=== PATIENT | male | born 1955 | race Caucasian/White ===

== ENCOUNTER 2021-03-04 00:40 | Observation (INO) ==
[2021-03-04] MEDS ORDERED: GADOBUTROL 65ML VIAL IV ONE (02:06)
[2021-03-04 02:17] LABS: Basophils # (auto) 0.02 K/uL (0-0.2); Basophils % (auto) 0.3 %; Eosinophils # (auto) 0.01 K/uL (0-0.5); Eosinophils % (auto) 0.1 %; Hematocrit (blood only) 40.6 % (42-52); Hemoglobin 14.2 g/dL (14.0-18.0); Immature Granulocytes # (auto) 0.04 K/uL (0.00-0.02); Immature Granulocytes % (auto) 0.5 %; Lymphocytes # (auto) 1.74 K/uL (1.2-3.4); Lymphocytes % (auto) 22.2 %; Mean Corpuscular Hemoglobin 28.8 pg (25-34); Mean Corpuscular Volume 82.4 fL (80-100); Mean Platelet Volume 10.6 fL (7.4-10.4); Monocytes % (auto) 8.9 %; Neutrophils # (auto) 5.33 K/uL (1.4-6.5); Platelet Count 167 K/uL (130-400); RDW Standard Deviation 41.8 fL (36.4-46.3); Red Blood Count 4.93 M/uL (4.7-6.1); White Blood Count 7.84 K/uL (4.8-10.8)
[2021-03-04 02:26] LABS: Albumin Level 3.9 gm/dl (3.4-5.0); BUN Creatinine Ratio 21.1 (10-20); Calcium 8.8 mg/dl (8.5-10.1); Creatinine Clr Calc Pharmacy 78.9 ml/min; Est GFR (African American) 87.1 ml/min; Est GFR (Non-African American) 75.2 ml/min; Potassium 4.1 mmol/L (3.5-5.1)
[2021-03-04 02:29] LABS: Albumin Globulin Ratio 1.2 (0.9-2); Bilirubin,Total 1.3 mg/dl (0.2-1); Globulin 3.2 gm/dl (2.5-4.0); Total Protein 7.1 gm/dl (6.4-8.2)
[2021-03-04] MEDS ORDERED: SODIUM CHLORIDE 0.9% 500 ML IV ONE (02:33)
--- NOTE | 2021-03-04 02:36 | Emergency Department Note ---
Impression & Plan Acute alteration in mental status, Acute dehydration ED Provider Note NAME: ASA GOMEZ AGE: 65 SEX: M ARRIVES VIA: Ambulance INFORMANT: Patient ED PROVIDER(S): Hawa Palomino DO CHIEF COMPLAINT: Altered mental status PLAN: [facility] Stable MEDICAL DECISION MAKING: This is a 65-year-old male patient who presents to the emergency department with a persistent altered mental status. Patient was seen here earlier in the day with a similar complaint. However, the brother states that the patient's confusion persists and seems to be worsening. Covid testing is negative. MRI of the brain is essentially unremarkable. Patient's transaminases have incre ased even more since yesterday. Ammonia level slightly elevated at 34. I have [facility] the [facility] and they will evaluate the patient for further management and neurology evaluation. Triage Nursing notes reviewed and agree with them. Additional history obtained from the patient's brother who is at the bedside Prior medical records reviewed Vital Signs: reviewed and unremarkable Differential diagnosis: Metabolic encephalopathy; Covid brain fog; dehydration; UTI; acute CVA; ER treatment provided: IV normal saline bolus Diagnostics interpreted by me: ECG: Sinus tachycardia at [address] segment elevation or signs of ischemia. There is no ectopy. QTC is 433 ms. Cardiac Monitoring: Normal sinus rhythm at 99. Laboratory studies: See below Imaging studies: As per stat rad MRI brain: Impression negative exam. No ICH, mass-effect or edema. No foci of acute ischemia. No abnormal enhancement in the brain parenchyma. No substantial parenchymal signal abnormality. Small retention cyst in the maxillary sinuses. HPI: 65/M arrives for evaluation of confusion. The patient was discharged from the emergency department earlier this evening after being evaluated for altered mental status. The brother explains that upon arriving at home, the patient has been walking about the house seemingly confused. For example, the patient does not know how to work the remote control for the TV and has asked repeatedly how to use it. Another example is that the patient unwrapped a [place] bar to eat it and held it in his hand not knowing what to do with that to the point that it melted. The patient seemed more paranoid and the brother called EMS. EMS noted that the patient seemed to be agitated and picking at things. They called medical command and got orders to administer IV Ativan which seemed to help the patient's overall condition. ROS: See above HPI for pertinent positives & negatives. A total of 10 systems reviewed and were otherwise negative. PAST MEDICAL HISTORY:GERD and hypercholesterolemia PAST SURGICAL HISTORY:See Below FAMILY HISTORY:See Below SOCIAL HISTORY:See Below HOME MEDICATIONS:See list ALLERGIES:None VITALS:See Below PHYSICAL EXAMINATION: HEENT: Head - normocephalic and atraumatic. Pupils are equal, round, and reactive to light. Extraocular eye muscles are intact and sclera are anicteric. Ears - bilaterally patent canals with noninjected tympanic membranes and no evidence of hemotympanum. Nose - moist nasal mucosa without discharge. Mouth - moist buccal mucosa. Oropharynx is nonerythematous and there is no tonsillar exudate or edema noted. Neck: Supple; no JVD, nuchal rigidity, cervical lymphadenopathy, or auscultated bruits. Heart: Regular rate and rhythm. There is a normal S1 and S2 with no murmurs, clicks, or gallops appreciated. Lungs: Clear to auscultation bilaterally with no wheezes, rales, or rhonchi. Abdomen: Soft, completely nontender, nondistended, with good bowel sounds. There are no palpable pulsatile masses or hepatosplenomegaly. There is no guarding, rigidity, or rebound noted. Extremities: No evidence of cyanosis, clubbing, or edema. There are easily palpable peripheral pulses. Neuro:The patient is awake and alert but slow to answer questions. He was oriented to day, time, and place. Muscle strength is 5/5 in all 4 extremities. The patient has equal call taker strength and equal pedal push and pull. There are no cerebellar signs. ED COURSE: Times/Reassessments: 0055: The patient was evaluated in room C9. A complete history and physical was performed. Previous electronic medical records were reviewed. An order was placed for continuous cardiac monitoring. The patient was in a normal sinus rhythm at a rate of 99. A twelve-lead EKG was obtained as described above. Covid testing was performed. The patient will go for MRI of the brain. Laboratory studies were drawn. Labs reveal some evidence of dehydration. The patient was bolused with IV normal saline solution and then started on a normal saline drip. [facility] and they will evaluate for further management. Hawa Palomino DO Past Med/Surg History Medical History GERD (gastroesophageal reflux disease) Hypercholesterolemia Surgical History No significant past surgical history Family History Other Diabetes Hypertension Social History Smoking Status: Never smoker Hx Alcohol Use: No Hx Substance Use: No Preferred Language: Romansh Communication Ability: Impaired Beliefs That Will Affect Care: None marital status: Single Current Living Situation: Family current occupational status: unemployed Other Information That Helps Us Care for You: No Feels Safe at Home: Yes Assistive Devices: Glasses Allergies Allergies Allergy/AdvReac Type Severity Reaction Status Date / Time No Known Allergies Allergy Unverified 03/03/21 11:18 Home Meds Home Medications Medication Instructions Recorded Confirmed atorvastatin 10 mg PO HS 07/17/18 03/04/21 cholecalciferol (vitamin D3) 2,000 unit PO DAILY@1600 07/17/18 03/04/21 [Vitamin D3] omeprazole 40 mg PO DAILY@1600 07/17/18 03/04/21 aspirin [Aspir-81] 81 mg PO DAILY@1600 03/03/21 03/04/21 Results & Data (ED) Vital Signs Vital Signs - 24 hr 03/04/21 00:46 03/04/21 00:53 03/04/21 01:00 Temperature 37.0 C Temperature Source Oral Pulse Rate 106 H 110 H 110 H Pulse Rate [Finger] Pulse Rate from SpO2 Sensor 108 H 110 H Respiratory Rate 17 16 15 Blood Pressure 125/86 122/80 125/79 Blood Pressure [Right Arm] Blood Pressure Mean 99 94 94 Blood Pressure Mean [Right Arm] Blood Pressure Position [Right Arm] Pulse Oximetry 93 92 91 Oxygen Delivery Method Room Air Sepsis Recent Fever Within 48 Hours No Sepsis New/Unexplained Change in Mental Status No Sepsis Action Taken by Nursing No Action Required 03/04/21 01:14 03/04/21 01:15 03/04/21 01:30 Temperature Temperature Source Pulse Rate 105 H 101 H Pulse Rate [Finger] Pulse Rate from SpO2 Sensor 103 H 101 H Respiratory Rate 19 15 Blood Pressure 111/77 115/72 Blood Pressure [Right Arm] Blood Pressure Mean 88 86 Blood Pressure Mean [Right Arm] Blood Pressure Position [Right Arm] Pulse Oximetry 95 89 L 92 Oxygen Delivery Method Room Air Sepsis Recent Fever Within 48 Hours Sepsis New/Unexplained Change in Mental Status Sepsis Action Taken by Nursing 03/04/21 02:16 03/04/21 02:30 03/04/21 02:45 Temperature Temperature Source Pulse Rate 101 H 99 H 101 H Pulse Rate [Finger] Pulse Rate from SpO2 Sensor 99 H 102 H Respiratory Rate 25 H 15 Blood Pressure 118/87 130/85 Blood Pressure [Right Arm] Blood Pressure Mean 97 100 Blood Pressure Mean [Right Arm] Blood Pressure Position [Right Arm] Pulse Oximetry 95 96 Oxygen Delivery Method Sepsis Recent Fever Within 48 Hours Sepsis New/Unexplained Change in Mental Status Sepsis Action Taken by Nursing 03/04/21 03:00 03/04/21 03:15 03/04/21 03:30 Temperature Temperature Source Pulse Rate 96 H 90 101 H Pulse Rate [Finger] Pulse Rate from SpO2 Sensor 95 H 90 100 H Respiratory Rate 9 L 21 12 Blood Pressure 115/72 114/70 114/77 Blood Pressure [Right Arm] Blood Pressure Mean 86 84 89 Blood Pressure Mean [Right Arm] Blood Pressure Position [Right Arm] Pulse Oximetry 95 93 95 Oxygen Delivery Method Sepsis Recent Fever Within 48 Hours Sepsis New/Unexplained Change in Mental Status Sepsis Action Taken by Nursing 03/04/21 03:38 Temperature Temperature Source Pulse Rate Pulse Rate [Finger] 96 H Pulse Rate from SpO2 Sensor Respiratory Rate 17 Blood Pressure Blood Pressure [Right Arm] 114/77 Blood Pressure Mean Blood Pressure Mean [Right Arm] 89 Blood Pressure Position [Right Arm] Lying Pulse Oximetry 94 Oxygen Delivery Method Room Air Sepsis Recent Fever Within 48 Hours Sepsis New/Unexplained Change in Mental Status Sepsis Action Taken by Nursing Laboratory Data Result diagrams: 03/04/21 00:54 03/04/21 00:54 Lab Results 03/04/21 03/04/21 03/04/21 Range/Units 00:54 00:54 01:10 WBC 7.84 (4.8-10.8) K/uL RBC 4.93 (4.7-6.1) M/uL Hgb 14.2 (14.0-18.0) g/dL Hct 40.6 L (42-52) % MCV 82.4 (80-100) fL MCH 28.8 (25-34) pg MCHC 35.0 (32-36) g/dL RDW Std Deviation 41.8 (36.4-46.3) fL RDW Coeff of Geovanna 14.0 (11.5-14.5) % Plt Count 167 (130-400) K/uL MPV 10.6 H (7.4-10.4) fL Immature Gran % (Auto) 0.5 % Neut % (Auto) 68.0 % Lymph % (Auto) 22.2 % Waldo % (Auto) 8.9 % Eos % (Auto) 0.1 % Baso % (Auto) 0.3 % Neut # (Auto) 5.33 (1.4-6.5) K/uL Lymph # (Auto) 1.74 (1.2-3.4) K/uL Waldo # (Auto) 0.70 H (0.11-0.59) K/uL Eos # (Auto) 0.01 (0-0.5) K/uL Baso # (Auto) 0.02 (0-0.2) K/uL Immature Gran # (Auto) 0.04 H (0.00-0.02) K/uL Sodium 141 (136-145) mmol/L Potassium 4.1 (3.5-5.1) mmol/L Chloride 106 (98-107) mmol/L Carbon Dioxide 28 (21-32) mmol/L Anion Gap 7.0 (3-11) BUN 22 H D (7-18) mg/dl Creatinine 1.05 (0.6-1.4) mg/dl Est Cr Clr Drug Dosing 78.9 ml/min Est GFR ( Amer) 87.1 ml/min Est GFR (Non-Af Amer) 75.2 ml/min BUN/Creatinine Ratio 21.1 H (10-20) Glucose 123 H (70-99) mg/dl Calcium 8.8 (8.5-10.1) mg/dl Total Bilirubin 1.3 H (0.2-1) mg/dl AST 75 H (15-37) U/L ALT 130 H (12-78) U/L Alkaline Phosphatase 139 H (45-117) U/L Total Protein 7.1 (6.4-8.2) gm/dl Albumin 3.9 (3.4-5.0) gm/dl Globulin 3.2 (2.5-4.0) gm/dl Albumin/Globulin Ratio 1.2 (0.9-2) COVID-19 Eval Order Covid19 at [facility] SARS-CoV-2 (PCR) (Negative) 03/04/21 Range/Units 01:10 WBC (4.8-10.8) K/uL RBC (4.7-6.1) M/uL Hgb (14.0-18.0) g/dL Hct (42-52) % MCV (80-100) fL MCH (25-34) pg MCHC (32-36) g/dL RDW Std Deviation (36.4-46.3) fL RDW Coeff of Geovanna (11.5-14.5) % Plt Count (130-400) K/uL MPV (7.4-10.4) fL Immature Gran % (Auto) % Neut % (Auto) % Lymph % (Auto) % Waldo % (Auto) % Eos % (Auto) % Baso % (Auto) % Neut # (Auto) (1.4-6.5) K/uL Lymph # (Auto) (1.2-3.4) K/uL Waldo # (Auto) (0.11-0.59) K/uL Eos # (Auto) (0-0.5) K/uL Baso # (Auto) (0-0.2) K/uL Immature Gran # (Auto) (0.00-0.02) K/uL Sodium (136-145) mmol/L Potassium (3.5-5.1) mmol/L Chloride (98-107) mmol/L Carbon Dioxide (21-32) mmol/L Anion Gap (3-11) BUN (7-18) mg/dl Creatinine (0.6-1.4) mg/dl Est Cr Clr Drug Dosing ml/min Est GFR ( Amer) ml/min Est GFR (Non-Af Amer) ml/min BUN/Creatinine Ratio (10-20) Glucose (70-99) mg/dl Calcium (8.5-10.1) mg/dl Total Bilirubin (0.2-1) mg/dl AST (15-37) U/L ALT (12-78) U/L Alkaline Phosphatase (45-117) U/L Total Protein (6.4-8.2) gm/dl Albumin (3.4-5.0) gm/dl Globulin (2.5-4.0) gm/dl Albumin/Globulin Ratio (0.9-2) COVID-19 Eval Order SARS-CoV-2 (PCR) NEGATIVE (Negative) Administered Medications Discontinued Medications Gadobutrol (Gadobutrol 65ml Vial) 9 ml IV ONCE ONE Stop: 03/04/21 02:07 Last Admin: 03/04/21 02:07 Dose: 9 ml Documented by: [id number] Sodium Chloride (Nss) 500 mls @ 999 mls/hr IV .Q31M ONE Stop: 03/04/21 03:03 Last Infusion: 03/04/21 03:20 Dose: 0 mls/hr Documented by: [id number] Admin: 03/04/21 02:42 Dose: 999 mls/hr Documented by: [id number] Sodium Chloride (Nss) 500 mls @ 125 mls/hr IV .Q4H [facility] Stop: 04/03/21 02:44 Last Infusion: 03/04/21 04:56 Dose: 0 mls/hr Documented by: [id number] Admin: 03/04/21 02:48 Dose: 125 mls/hr Documented by: [id number] Discharge Plan Visit Data Chief Complaint: Altered Mental Status Stated Complaint: ALTERED MENTAL STATUS ED Provider: Hawa Palomino Discharge Problem: Acute alteration in mental status, Acute dehydration Patient Disposition: Admitted As Inpatient Discharge Instructions Interventions: ED Discharge Assessment Last Done: 03/04/21 04:15
[2021-03-04] MEDS ORDERED: SODIUM CHLORIDE 0.9% 500 ML IV SCH (02:45)
[2021-03-04] MEDS ORDERED: POLYETHYLENE (MIRALAX) 17 GM PACK PO PRN (04:47)
[2021-03-04] MEDS ORDERED: ONDANSETRON INJ 2 MG/ML 2 ML VIAL IV PRN (04:47)
[2021-03-04] MEDS ORDERED: NITROGLYCERIN SL 0.4 MG/TAB TAB SL PRN (04:47)
[2021-03-04] MEDS: SODIUM CHLORIDE 0.9% 1000ML 1,000 ML IV SCH ×2 (05:30→15:28)
--- NOTE | 2021-03-04 05:57 | History and Physical Report ---
DATE OF ADMISSION: 03/04/2021. CHIEF COMPLAINT: Confusion. HISTORY OF PRESENT ILLNESS: This 65-year-old male with past medical history significant for hyperlipidemia, GERD, BPH, history of onychomycosis, history of condyloma acuminatum who lives with his brother was brought in because of confusion. The patient attended of his aunt on Thursday. Since yesterday the patient seemed to be somewhat confused. Did not make sense for his brother at home, was brought to the ER early in the morning yesterday, at which time labs unremarkable. Ammonia level was okay except for mild transaminitis, other labs were fine. He got CT of the head which was unremarkable and patient seemed to be fine and he was sent home. After going home, patient seemed to be again confused. As per the brother he was confused, keeps on walking the house and not sitting and seems asks on the same thing and EMS was called and brought in here.Brother says he talks about to see aunt who recently . Here in the ER again labs show some worsening transaminitis and bilirubin is 1.3. In the morning his ammonia was 13, right now his ammonia is 34. Brain MRI done which was unremarkable. Currently, resting comfortable and stable. The patient speaks in low voices. Denies any headache, denies any dizziness or vertigo. Denies any earache, runny nose or sore throat. Denies blurred visions. No cough. Appetite is down today. No chest pain, no shortness of breath, no cough, no nausea, no abdominal pain, normal bowel and bladder movements. No swelling in the legs, no rash. Hemodynamics are stable. ALLERGIES: No known drug allergies. PAST MEDICAL HISTORY: As mentioned above. PAST SURGICAL HISTORY: Colonoscopy, mole on the back removed. MEDICATIONS: Aspirin 81 mg p.o. daily, atorvastatin 10 mg p.o. at bedtime, vitamin D 2000 units p.o. daily, omeprazole 40 mg p.o. daily. FAMILY HISTORY: Significant for mother had cancer, diabetes; father has heart disorder. SOCIAL HISTORY: Single, currently lives with his brother. No smoking, no alcohol, no drug use. REVIEW OF SYSTEMS: As per HPI. Rest of review of systems is negative. PHYSICAL EXAMINATION: GENERAL: The patient is alert and awake, not in acute distress. VITAL SIGNS: Temperature 37, pulse 100, respiratory rate 32, blood pressure 121/77, oxygen 94% on room air. HEENT: Pupils equal, round and reactive to light. Oral mucosa moist. NECK: No JVD or neck masses. CARDIOVASCULAR SYSTEM: S1 and S2 heard. Regular rate and rhythm. No murmur, no gallop. RESPIRATORY SYSTEM: Normal AP diameter. No accessory muscle use. No wheezing, no crackles. ABDOMEN: Soft, bowel sounds are not present, nontender, nondistended. CENTRAL NERVOUS SYSTEM: Alert and oriented to name and place, somewhat confused at times, confusion with dates. Tells me his date of . Knows that he is in the hospital. Speech is clear. No facial droop. Obeys simple commands, answers simple questions. Moves extremities. Power 5/5 in all extremities. Sensation is intact. Position sense intact. No pronator drift. Coordination of movements normal. EXTREMITIES: No edema, no erythema. LABORATORY DATA: WBC 7.8, hemoglobin 14.2, hematocrit 40.6, platelets 167. Sodium 141, potassium 4.1, chloride 106, bicarbonate 28, BUN 32, creatinine 1.05. Serum glucose 123, calcium 8.8, total bilirubin 1.3, AST 74, ALT 130, alkaline phosphatase 113. Ammonia 34. SARS-CoV-2 PCR negative. Brain MRI report unremarkable. ASSESSMENT AND PLAN: This is a 65-year-old male who presents with ongoing confusion. 1. Confusion, etiology unclear. His transaminitis is slightly elevated and trending slightly upwards. Yesterday's ammonia level was only 13, today it is 34. We will get a liver ultrasound. Hold statin. No alcohol, no drugs.Patient attended his aunt's on Thursday and as per brother he seems to be talking about his aunt. Possible depression versus conversion disorder. Consult psychiatry, consult neurology for further recommendations. Monitor in the med tele floor. 2. Transaminitis, total bilirubin 1.3 and ammonia level is 34, questionable hepatic encephalopathy but ammonia level was normal yesterday. We will trend levels. We will get liver ultrasound and also we will check hepatitis panel. We will consider consult GI. Holding statin. 3. History of dyslipidemia, holding statin because of the transaminitis. 4. GERD: Continue omeprazole. 5. Deep venous thrombosis prophylaxis. Sequential compression devices for now. DISPOSITION: Closely monitor in the [facility] tele. Level 1 full code. Expect to discharge home and follow up with family doctor. Job ID: [id number]
--- NOTE | 2021-03-04 07:10 | Magnetic Resonance Report ---
MRI OF THE BRAIN WITHOUT AND WITH IV CONTRAST CLINICAL HISTORY: Acute change in mental status COMPARISON STUDY: Noncontrast head CT dated 03/03/2021 TECHNIQUE: MRI of the brain was performed from the vertex to the skull base utilizing various T1 and T2 weighted sequences. Following the IV administration of 9 mL of Gadavist contrast, additional enhan ike images were obtained. FINDINGS: Sagittal T1, axial diffusion, proton density and T2 weighted axial, coronal FLAIR, and pre and post a xial T1-weighted images were acquired. These were supplemented with post gadolinium coronal T1 weight ed images. No intra or extra-axial mass lesions are visualized. Axial diffusion-weighted images reveal no evidence of acute or subacute infarction. There is no evidence of ventricular dilatation. Proton density T2-weighted and FLAIR images reveal prominent perivascular spaces within the right fro ntoparietal region There are no abnormal flow voids. There is no evidence of pathologic enhancement. IMPRESSION: 1. No acute intracranial findings 2. No evidence of acute or subacute infarction 3. No evidence of intracranial mass ACT 112: Negative or not required by law. Electronically signed by: Howard Arias M.D. 03/04/2021 7:08 AM
--- NOTE | 2021-03-04 07:36 | Ultrasound Report ---
ABDOMINAL ULTRASOUND, RIGHT UPPER QUADRANT HISTORY: elevated lft. COMPARISON: None. FINDINGS: Pancreas: Obscured by overlying bowel gas. Liver: Unremarkable. Gallbladder: No gallbladder wall thickening. No gallstones. Negative sonographic Argueta sign. CBD: 4 mm. Right kidney: No hydronephrosis. IMPRESSION: No significant abnormality identified within the visualized right upper quadrant. ACT 112: Negative or not required by law. Electronically signed by: Gabo Sharma M.D. 03/04/2021 7:34 AM
[2021-03-04 07:51] LABS: Basophils # (auto) 0.02 K/uL (0-0.2); Basophils % (auto) 0.3 %; Eosinophils # (auto) 0.02 K/uL (0-0.5); Eosinophils % (auto) 0.3 %; Hematocrit (blood only) 39.9 % (42-52); Hemoglobin 13.9 g/dL (14.0-18.0); Immature Granulocytes # (auto) 0.02 K/uL (0.00-0.02); Immature Granulocytes % (auto) 0.3 %; Lymphocytes % (auto) 26.6 %; Mean Corpuscular Hemoglobin 29.4 pg (25-34); Mean Corpuscular Hgb Conc 34.8 g/dL (32-36); Mean Corpuscular Volume 84.4 fL (80-100); Mean Platelet Volume 10.1 fL (7.4-10.4); Monocytes # (auto) 0.71 K/uL (0.11-0.59); Monocytes % (auto) 9.9 %; Neutrophils # (auto) 4.47 K/uL (1.4-6.5); Neutrophils % (auto) 62.6 %; Platelet Count 181 K/uL (130-400); RDW Coefficient of Variation 14.1 % (11.5-14.5); RDW Standard Deviation 43.8 fL (36.4-46.3); Red Blood Count 4.73 M/uL (4.7-6.1); White Blood Count 7.14 K/uL (4.8-10.8)
[2021-03-04 08:23] LABS: Albumin Level 3.4 gm/dl (3.4-5.0); BUN Creatinine Ratio 22.8 (10-20); Bilirubin Direct 0.3 mg/dl (0-0.2); Calcium 8.6 mg/dl (8.5-10.1); Est GFR (African American) 100.9 ml/min; Est GFR (Non-African American) 87.1 ml/min; Magnesium 2.7 mg/dl (1.8-2.4)
[2021-03-04 08:26] LABS: Total Protein 7.1 gm/dl (6.4-8.2)
[2021-03-04 10:01] LABS: Hepatitis B Surf Ag Rflx Conf Neg (Neg)
[2021-03-04 10:29] LABS: Hepatitis C IgG 13Yrs+Old_Rflx Neg (Neg)
--- NOTE | 2021-03-04 11:52 | Electroencephalogram ---
EEG Procedure Note Date of Service March 04, 2021 Start / End Times Start Time: 1014 End Time: 1034 Referring Physician Aundrea Malik MD History Episodic confusion of uncertain cause Home Medication List Medication Instructions Recorded Confirmed Type atorvastatin 10 mg PO HS 07/17/18 03/04/21 History cholecalciferol (vitamin D3) 2,000 unit PO DAILY@1600 07/17/18 03/04/21 History [Vitamin D3] omeprazole 40 mg PO DAILY@1600 07/17/18 03/04/21 History aspirin [Aspir-81] 81 mg PO DAILY@1600 03/03/21 03/04/21 History Inpatient Medication List Sodium Chloride (Nss 1000ml) 1,000 mls @ 100 mls/hr IV .Q10H [facility] Stop: 03/05/21 00:46 Last Admin: 03/04/21 05:30 Dose: 100 mls/hr Documented by: [id number] Discontinued Medications Gadobutrol (Gadobutrol 65ml Vial) 9 ml IV ONCE ONE Stop: 03/04/21 02:07 Last Admin: 03/04/21 02:07 Dose: 9 ml Documented by: [id number] Sodium Chloride (Nss) 500 mls @ 999 mls/hr IV .Q31M ONE Stop: 03/04/21 03:03 Last Infusion: 03/04/21 03:20 Dose: 0 mls/hr Documented by: [id number] Admin: 03/04/21 02:42 Dose: 999 mls/hr Documented by: [id number] Sodium Chloride (Nss) 500 mls @ 125 mls/hr IV .Q4H [facility] Stop: 04/03/21 02:44 Last Infusion: 03/04/21 04:56 Dose: 0 mls/hr Documented by: [id number] Admin: 03/04/21 02:48 Dose: 125 mls/hr Documented by: [id number] Description This is a 21 electrode EEG with a single channel dedicated to limited EKG. The electrodes were placed in accordance with the International 10-20 system His EEG during wakefulness as a bedside recording is of good technical quality interrupted periodically with patient movement and muscle artifact. Photic stimulation was performed Drowsiness and light sleep not recorded Under these conditions there is evidence for normal-appearing background alpha rhythm which is maximum posterior head regions, is up to 10 Hz moderate frequency of up to 30 V maximum amplitude and is bilaterally symmetrical. Polymorphic mid frequency modest voltage theta activity seen symmetrically over the central regions predominantly. Beta activity seen bifrontally. Photic stimulation elicited minimal driving response No potentially epileptiform activity is seen Interpretation This is a normal EEG during wakefulness Clinical Correlation This EEG is normal and fails reveal evidence for a focal generalized encephalopathy or potentially epileptogenic activity and no evidence for intermittent nonconvulsive epileptiform patterns are seen Nato Camacho MD
--- NOTE | 2021-03-04 15:07 | Psychiatric Consultation ---
Date of Consultation March 04, 2021 Impression / Recommendations Impression 65-year-old male presenting with AMS. Upon evaluation patient does appear depressed and will somewhat hesitantly admit to several years of low mood. While it is possible for depression to present a clinical picture with cognitive slowing and confusion, what is unusual is the abrupt course in which there was this change in this patient's mentation according to collateral information. It possibly can be attributed to the acute stressor of losing his aunt, however patient at this time is not even able to state that he lost his aunt and still refers to her as alive, again showcasing his significant confusion. Psychiatry team is hesitant to start psychiatric medications in the acute setting of AMS. Recommendations: Continue with work-up for AMS including metabolic, infectious, vascular Psychiatry will continue to follow. Risk Factors Assessment Male: Yes : Yes Psych History Identifying Data Patient is a 65-year-old male who presents to the hospital with AMS Chief Complaint "Are you here for surgery?". History of Present Illness HPI as per psychiatric liaison "Patient was able to identify that he is in the hospital and at [facility], however he was unable to identify a reason why he would have been admitted. "I don't know, was it because of my foot". Patient is slow to respond with intermittent eye contact. States he and his brother have lived in the family home their entire life. His brother, Kenny, still works, however Alex does not recall working since 2009, at "[employer]". When asked if he recalls what he did over the weekend, he was unable to recall attending the . When asked if patient has any other family, he states, "my aunt, I see her a lot, she just lives a mile and a half down the road." Hany rose does not recall she had passed on . Admits to feeling down from [id number]-gk-[id number], feels supported by his brother and his aunt, admits to having interrupted sleep, due to awakening to urinate approximately 3 times per night. Denies any traumas or identifiable stressors. States he feels his energy level is good. Informed patient his brother will be coming in at 1pm to visit with him, before he has to leave for work. Original Note: Spoke with patient's brother, Kenny, for collateral information. Reports their aunt last (unknown reason) and patient had gone to her on Thursday and seemed confused on Thursday, asking if he was going to go to his aunt's house today, (Thursday). Ray states patient had spent a lot of time with their aunt and patient and her were very close. Ray states patient had appeared to be eating well, until Thursday, "he didn't eat anything Thursday". Reports he believes patient's sleep has been interrupted, waking off-and-on through the night to get up. Denies of any psychiatric medications or medication trials for sleep. Denies any knowledge of any suicidal thoughts or comments, denies any homicidal thoughts, denies any history of impulsivity or violent behaviors. Denies any psychiatric providers, any inpatient admissions. Denies any alcohol, tobacco or drug use. Denies any family history of suicide, or mental health issues. Reports patient graduated high school at [employer] and had last worked at [employer]. States their mother 11 years ago and their father 22 years ago. " Upon evaluation this afternoon, patient presented very slow to respond soft voice answers. He thought the date to be March 13, 2021 when it is in fact March 04. He also did not know how he had gone to the hospital or for what reason he was here. Initially asked auto service writer if he was there for surgery. He did admit to low mood for several years but denied any suicidal or homicidal ideation. Denied any manic or psychotic symptoms. Interview was limited as patient was quite confused during the interview and slow to respond with answers. Past Psychiatric History Previous Psych History: Denies any previous psychiatric hospitalization Allergies Allergy/AdvReac Type Severity Reaction Status Date / Time No Known Allergies Allergy Unverified 03/03/21 11:18 Home Medications Medication Instructions Recorded Confirmed Type atorvastatin 10 mg PO HS 07/17/18 03/04/21 History cholecalciferol (vitamin D3) 2,000 unit PO DAILY@1600 07/17/18 03/04/21 History [Vitamin D3] omeprazole 40 mg PO DAILY@1600 07/17/18 03/04/21 History aspirin [Aspir-81] 81 mg PO DAILY@1600 03/03/21 03/04/21 History Personal History Beliefs That Will Affect Care: None Patient History Medical History GERD (gastroesophageal reflux disease) Hypercholesterolemia Surgical History No significant past surgical history Family History Other Diabetes Hypertension Social History Smoking Status: Never smoker Hx Alcohol Use: No Hx Substance Use: No Preferred Language: Dominican Communication Ability: Impaired Beliefs That Will Affect Care: None marital status: Single Current Living Situation: Family current occupational status: unemployed Other Information That Helps Us Care for You: No Feels Safe at Home: Yes Assistive Devices: Glasses Physical Exam Psychiatric: Orientation: alert, oriented to person, oriented to place and cooperative Apperance: appropriately groomed Eye Contact: + fair eye contact Motor Behavior: + psychomotor retardation Soft speech Affect: + flat affect, + blunted affect and + constricted affect Mood: + depressed mood Thought Process: + thought blocking and + concrete thought process Significant confusion Thought Content: reality based without delusions Suicidal Thoughts: denies suicidal thoughts Homicidal Thoughts: denies homicidal thoughts Hallucinations: no auditory hallucinations and no gu statory hallucinations Cognition: + recent memory not intact and + remote memory not intact Estimated Intelligence: average estimated intelligence Insight: + impaired insight Judgement: + impaired judgement Vital Signs (Past 24 Hours): Last Vital Signs Temp 36.7 C 03/04/21 11:00 Pulse 108 H 03/04/21 11:00 Resp 18 03/04/21 11:00 BP 129/81 03/04/21 11:00 Pulse Ox 94 03/04/21 11:00 Review of Systems All systems reviewed & are unremarkable except as noted in HPI & below Results & Data (PSY) Medications Administered Sodium Chloride (Nss 1000ml) 1,000 mls @ 100 mls/hr IV .Q10H MERRILL Stop: 03/05/21 00:46 Last Admin: 03/04/21 05:30 Dose: 100 mls/hr Documented by: [id number] Coding Level of Care Code 77048 [facility] Care Lvl 2
[2021-03-04] MEDS: PANTOprazole 40 MG TAB PO SCH (15:31)
[2021-03-04] MEDS: ASPIRIN 81 MG ECTAB PO SCH (15:31)
--- NOTE | 2021-03-04 17:41 | Electrocardiogram Report ---
Test Reason : Blood Pressure : / mmHG Vent. Rate : 109 BPM Atrial Rate : 109 BPM P-R Int : 144 ms QRS Dur : 080 ms QT Int : 322 ms P-R-T Axes : 013 010 -03 degrees QTc Int : 433 ms Sinus tachycardia Otherwise normal ECG When compared with ECG of 03-MAR-2021 10:10, No significant change was found Confirmed by Ayaz Acosta ([id number]) on 03/04/2021 5:41:18 PM Referred By: REFERRED SELF Confirmed By:Juliano Acosta
--- NOTE | 2021-03-04 17:54 | Consultation Report ---
DATE OF CONSULTATION: 03/04/2021 REASON FOR CONSULTATION: Change in mental status. The history is obtained from the chart, as well I spoke to the patient's brother, Rl Hardin. HISTORY OF PRESENT ILLNESS: The patient is a 65-year-old right-handed male with hypertension and hyp erlipidemia. He was in his usual state of health. An aunt in the last week, and on Thursday, h is brother noted that he did not make dinner, which was unusual. He was not feeding himself or eatin g and he had difficulty eating ice cream that the patient's brother presented to him. He had difficu lty understanding how to use the remote. He describes his brother is not usually talking very much a t baseline. He graduated from high school and worked at least at [employer]. He stopped working [employer] a while ago because he did not want to work anymore. He did not like to drive, so did not drive. He was able to do cooking, activities of daily living, medication administration and bill paying. Nataly ward has not appeared depressed. He had not had any complaints such as headache. There was no observed loss of consciousness or trauma. There was no weight loss. He was not previously incontinent. He has no psychiatric history. He has no family history of psychiatric disease and no family history of dementia. He had been seen in the Emergency Room on Thursday. Labs were notable at that time for a m ild elevation of transaminases with a normal ammonia. CT of the head was unremarkable and he was sen t home. His brother brought him back because he continued to be symptomatic, kept walking in the [facility] and not sitting and repeating himself. He spoke about seeing an aunt who had recently . On this ER admission, the labs showed worsening transaminitis and a bilirubin of 1.3. His ammonia farrar d been 13 and chance to 34. MRI of the brain, which I reviewed with and without contrast appears unrem arkable. His EEG was normal. His initial white count on admission was 4.62, H and H 13.9/39.8, plat elet count 130. PT, PTT normal. Blood gas normal. Glucose 116. Transaminases, AST 63, ALT 108. T yareli, they are 63 and 126. Alkaline phosphatase is 152. Ammonia was 34. B12 of 1084. Trace ketone s. Tox screen negative. COVID negative. Hepatitis screen, hep C and hep B are negative. Hep B surf ernesto antigen negative. Hep A is pending. PAST MEDICAL HISTORY: Hypertension, hyperlipidemia, BPH, condylomata acuminata. PAST SURGICAL HISTORY: Colonoscopy, mole on back removed. HOME MEDICATIONS: Aspirin, atorvastatin, vitamin D, omeprazole. FAMILY HISTORY: Mother had cancer, diabetes. Father has heart disease. SOCIAL HISTORY: Single. The patient lives with his brother. Does not drive and does not work. No drug or alcohol use or smoking. PHYSICAL EXAMINATION: VITAL SIGNS: Have been fairly unremarkable. His heart rate ranging from 94-108, respiration rate ty pically normal, blood pressure normal. O2 sat 94%. Most recent vitals, 36.9, 97, 16, 124/75. NEUROLOGIC: The patient is awake. He is very distractible. There is a paucity of spontaneous speec h and, in fact, I would say there was no spontaneous speech. The patient is inattentive. He is able to state his name and that he is at a hospital. He is very slow in mentation. His voice volume is low. He is unable to state the date. There is no right/left confusion. He is able to follow 1 of a 3-step commands. His reading is intact. Calculations are impaired. He is unable to write a senten ce, unable to fill out a clock, although will write a 12 at the top of it and do some verbal persever ation. He is unable to copy double interlocking pentagons. He is unable to mimic a chain with his f ingers. His neck is supple. His head is normocephalic, atraumatic. He appears generally well enoug h groomed at baseline. His fingernails look recently groomed, although there is dirt under his finge rnails. There is no sinus tenderness. His pupils are equal and reactive. Optic nerves appeared to be unremarkable, saxena are not tested. Motility is normal. There is normal facial symmetry. Tongu e is midline. Motor: No resting tremor, no rigidity. Upper extremities are greater than antigravit y. Lower extremities are greater than antigravity. Wergtf-kz-tyam is essentially normal. No flap i s noted. Yqwd-rk-fupq is normal. Reflexes are symmetric. Ankle jerks are trace. Toes are downgoin g. Sensory examination was not performed due to the patient's mental status. REVIEW OF SYSTEMS: Was also not performed. IMPRESSION AND PLAN: This patient appears to have a global encephalopathy, the etiology of which is unclear. Liver functions are elevated and rising. Ultrasound of the right upper quadrant does not r eveal an etiology. Recommend following liver functions as well as ammonia. Consider repeating EEG, although not at present. I would recommend a lumbar puncture under fluoroscopic guidance. This shou ld check a CBC, differential, protein, glucose, bacterial meningitis antigen panel, viral panel, cryp tococcus cytology, culture and sensitivity, AFB culture and sensitivity, and fungal culture and sensi tivity. In addition to liver dysfunction, which could be infectious, the patient could have a vasculopathy. I do not see any evidence radiographically that this is the case. I would check an JOSUE and a sedimen tation rate and an RPR. This could be a remote effect of a tumor, although I think that is lower on the list given the acuteness. There is no history of trauma. This could be in part metabolic. Would check for treatable causes of infection such as Lyme. I will check thyroid function, folic acid and thiamine. I would supplement the patient with folic acid and thiamine as well. I agree with psychiatry that this is not a primary psychiatric disorder. EEG argues against subclini lola status epilepticus. We will follow with you. Job ID: [id number]
--- NOTE | 2021-03-04 17:57 | Hospitalist Progress Note ---
Date of Service March 04, 2021 Assessment & Plan (1) Acute alteration in mental status: presents with confusion , slow mentation not sure of the etiology no obvious source of infection MRI of brain -no stroke EEG : normal finding appreciate input from Neurology -global encephalopathy due to unknown cause fluoroscopic guided lumber puncture will be ordered in am per neuro recommendation psych eval appreciated , pt has hx of depression due to acute onset of confusion , not correlate with psychiatric disorder ( pt does not have hallucination , delirium , no suicidial ideation ) no significant finding except for psychomotor slowing and lack of orientation to surroundings need to rule out infectious or metabolic cause (2) Transaminitis: liver US shows no pathology repeat lab /hepatitis panel orderd Admission and Anticipated Discharge Date Admission Date: March 04, 2021 Subjective follow up visit for confusion /slow mentation : pt seen in room 276/2 awake and alert , very slow to answer question , through out the interview , he remains focused on 2 pens on his end tables asks -if they were pencils -as i corrected they are pens he asks if these are ink pens , when told these are ball point pens he appears to be confused and asks again if they are pencils not aware that he is in hospital , pt sat up at edge of bed when asked , no weakness noted review of systems limited as with each questions pt will have a black stare no cough or respiratory distress noted pt denies of having any headache Review of Systems Review of Systems: Unobtainable due to cognitive status Physical Exam Constitutional: WD/WN, vitals as above Eyes: + anicteric sclerae ENMT: external ear and nose normal, oropharynx normal Neck: normal visual inspection Respiratory: normal respiratory effort, lungs clear to auscultation Cardiovascular: RRR, no murmur, no edema Gastrointestinal (Abdomen): Percussion/Palpation: abdomen soft; abdomen nontender Musculoskeletal: Head/Neck/Chest: normocephalic and head atraumatic Extremities: extremities normal to inspection and strength 5/5 throughout Gait: normal gait Skin: no rashes, warm and dry Neurologic: PERRL, EOMI, accommodation nl, no face palsy, no dysarthria + confused Psychiatric: Orientation: alert (very slow mentation , ) Motor Behavior: + psychomotor retardation Results & Data Results & Data ([facility]) Vital Signs (Past 12 Hours) Vital Signs Temp Pulse Pulse Resp BP Pulse Ox 03/04/21 17:00 94 H 03/04/21 16:03 36.9 C 97 H 16 124/75 93 03/04/21 11:00 36.7 C 108 H 18 129/81 94 03/04/21 10:38 96 H 03/04/21 07:00 36.5 C 91 H 18 116/75 94 03/04/21 06:45 96 H
[2021-03-04 19:25] LABS: Lyme Ab IgG w/WB Rflx Negative (Negative)
[2021-03-04 19:26] LABS: Lyme Ab IgM w/WB Rflx Negative (Negative)
[2021-03-05 06:30] LABS: Basophils # (auto) 0.02 K/uL (0-0.2); Basophils % (auto) 0.2 %; Eosinophils # (auto) 0.07 K/uL (0-0.5); Eosinophils % (auto) 0.9 %; Hematocrit (blood only) 39.2 % (42-52); Hemoglobin 13.4 g/dL (14.0-18.0); Immature Granulocytes # (auto) 0.03 K/uL (0.00-0.02); Immature Granulocytes % (auto) 0.4 %; Lymphocytes # (auto) 2.38 K/uL (1.2-3.4); Lymphocytes % (auto) 29.7 %; Mean Corpuscular Hemoglobin 28.6 pg (25-34); Mean Corpuscular Hgb Conc 34.2 g/dL (32-36); Mean Corpuscular Volume 83.6 fL (80-100); Monocytes % (auto) 7.5 %; Neutrophils # (auto) 4.91 K/uL (1.4-6.5); Neutrophils % (auto) 61.3 %; Platelet Count 191 K/uL (130-400); RDW Coefficient of Variation 14.2 % (11.5-14.5); RDW Standard Deviation 43.3 fL (36.4-46.3); Red Blood Count 4.69 M/uL (4.7-6.1); White Blood Count 8.01 K/uL (4.8-10.8)
[2021-03-05 07:03] LABS: Albumin Level 3.3 gm/dl (3.4-5.0); BUN Creatinine Ratio 17.3 (10-20); Bilirubin Direct 0.2 mg/dl (0-0.2); Calcium 8.3 mg/dl (8.5-10.1); Creatinine Clr Calc Pharmacy 92.7 ml/min; Est GFR (Non-African American) 91.4 ml/min; Magnesium 2.4 mg/dl (1.8-2.4); Potassium 3.9 mmol/L (3.5-5.1)
[2021-03-05 07:06] LABS: Bilirubin,Total 0.9 mg/dl (0.2-1); Total Protein 6.7 gm/dl (6.4-8.2)
--- NOTE | 2021-03-05 09:12 | Hospitalist Progress Note ---
Date of Service March 05, 2021 Assessment & Plan (1) Acute alteration in mental status: presents with confusion , slow mentation not sure of the etiology no obvious source of infection MRI of brain -no stroke EEG : normal finding Patient's symptom has remarkably improved this morning Conversing appropriately, does have flat affect, which could be part of his normal demeanor Oriented to surroundings, no confusion or delusions noted appreciate input from Neurology -global encephalopathy due to unknown cause No indication for lumbar puncture, as patient's confusion has resolved-neuro updated. psych eval appreciated , pt has hx of depression due to acute onset of confusion , not correlate with psychiatric disorder ( pt does not have hallucination , delirium , no suicidial ideation ) no significant finding except for psychomotor slowing and lack of orientation to surroundings (2) Transaminitis: liver US shows no pathology LFTs has continues to improve, Had normal ammonia level, doubt patient's confusion slow mentation was secondary to liver function abnormality CODE STATUS: Full code Disposition, will observe patient for another 24 hours to see continued clinical improvement, PT OT eval requested Brother will be updated over phone Admission and Anticipated Discharge Date Admission Date: March 04, 2021 Subjective follow up visit for confusion /slow mentation : pt seen in room 276/2 Patient is seen sitting up on chair eating breakfast, More spirited today, normal conversation, answering questions appropriately, does not appear to have any confusion or slow mentation that was noticeable yesterday Does not recall the events of the past 2 days, Knows that he is in the hospital [facility], knows the year 2020 initially thought it was November, then corrected himself that is February Knows the name of the president of [facility], Appears to be oriented with surrounding, time and space, Did not had any fever or chills cardiac monitoring showed no evidence of any arrhythmia, No headache or blurred vision, apparently patient is confusion has spontaneously resolved Review of Systems Review of Systems: All systems reviewed & are unremarkable except as noted in HPI & below Physical Exam Constitutional: WD/WN, vitals as above Eyes: + anicteric sclerae ENMT: external ear and nose normal, oropharynx normal Neck: normal visual inspection Respiratory: normal respiratory effort, lungs clear to auscultation Cardiovascular: RRR, no murmur, no edema Gastrointestinal (Abdomen): Percussion/Palpation: abdomen soft; abdomen nontender Musculoskeletal: Head/Neck/Chest: normocephalic and head atraumatic Extremities: extremities normal to inspection and strength 5/5 throughout Gait: normal gait Skin: no rashes, warm and dry Neurologic: PERRL, EOMI, accommodation nl, no face palsy, no dysarthria Psychiatric: Orientation: oriented x 3 (Oriented to time place and person, conversing appropriately) and cooperative Affect: + flat affect Results & Data Results & Data ([facility]) Vital Signs (Past 12 Hours) Vital Signs Temp Pulse Pulse Resp BP BP Pulse Ox 03/05/21 08:00 37.3 C 81 18 135/81 98 03/05/21 07:49 69 03/05/21 04:03 37.0 C 67 20 129/77 98 03/05/21 03:55 36.8 C 85 20 118/73 97 03/05/21 03:08 87 03/04/21 23:33 36.9 C 80 14 122/72 95 03/04/21 23:10 36.8 C 83 20 123/75 95
--- NOTE | 2021-03-05 18:02 | Progress Notes ---
DATE OF SERVICE: 03/05/2021 SUBJECTIVE: I am seeing Mr. Hardin in followup of an encephalopathy of unclear etiology. We had consi dered a lumbar puncture for today, but the patient is so markedly improved that we elected not to do so. In terms of the patient's laboratory data today, his liver function is improving. AST is 50, AL T is 107, alkaline phosphatase is 118, ammonia is now 14. His B12, folate and thyroid function were normal. JOSUE is pending. Lyme is negative. Sed rate was normal. RPR nonreactive. Hepatitis panel HBC is negative. Hepatitis A is pending. Hep B surface antigen negative. Hep B surface antibody ne gative. The patient's EEG yesterday was normal. The patient's brother was with him today. It is an interest ing dynamic, both gentleman are fairly quiet. When I asked the patient's brother if the patient is b ack to baseline, he has difficulty commenting to that. The patient himself does not know why he came to the hospital, indicating possibly because his aunt . He has no real current complaints other than saying he had a headache at 4:00, but he does not recall what day that was. He does not recall finding himself down on the ground. He indicates he was eating and drinking. PHYSICAL EXAMINATION: On today's exam, 120/77, 86, 18, 93% O2 sat. The patient is oriented to perso n. He knows that he is on the third floor, he could not spontaneously generate that he was in the ho spital, but when given choices, he did pick accurately. He knows who the president is. When asked w hat the most recent holiday was, he incorrectly responds as . He has some difficulty nam ing fingers. He has some difficulty with calculations i.e., he is not able to say how many quarters are there in a dollar 75. Reading was intact. No right/left confusion. Naming other than fingers s eemed unremarkable. He was able to follow simple commands. Pupils are equal. I could not reliably visualize the optic nerves. There is normal motility without nystagmus or extraocular muscle palsy. Face is symmetric. Strength is symmetric. Caaqhq-ln-gufh and qify-xb-uhzj are normal. His gait is normal. IMPRESSION AND PLAN: Transient encephalopathy, improving, unclear etiology, query related to liver d ysfunction, etiology unknown, query possible postictal state. Recommend ambulatory EEG as an outpati ent. The patient does not drive. I have advised the patient's brother when he goes home, if the pat ient is not at baseline or changes and declines to bring him back to the Emergency Room. I agree ross t a lumbar puncture is not necessary given the degree of improvement, but it might be necessary if th e patient does not return to baseline. Job ID: [id number]
[2021-03-05] MEDS: ASPIRIN 81 MG ECTAB PO SCH (18:31)
[2021-03-05] MEDS: CHOLECALCIFEROL 1,000 UNITS 25 MCG TAB PO SCH (18:31)
[2021-03-05] MEDS: PANTOprazole 40 MG TAB PO SCH (18:32)
[2021-03-05] MEDS: ATORVASTATIN 10 MG TAB PO SCH (22:02)
[2021-03-06 06:53] LABS: Albumin Level 3.3 gm/dl (3.4-5.0); Bilirubin Direct 0.2 mg/dl (0-0.2); Bilirubin,Total 0.8 mg/dl (0.2-1); Total Protein 6.7 gm/dl (6.4-8.2)
[2021-03-06 11:06] LABS: Anti Nuclear Antibody Screen NEGATIVE (NEGATIVE)
[2021-03-06] MEDS: ASPIRIN 81 MG ECTAB PO SCH (16:11)
[2021-03-06] MEDS: PANTOprazole 40 MG TAB PO SCH (16:11)
[2021-03-06] MEDS: CHOLECALCIFEROL 1,000 UNITS 25 MCG TAB PO SCH (16:12)
--- NOTE | 2021-03-06 17:16 | Progress Notes ---
DATE OF NOTE: 03/06/2021 SUBJECTIVE: I am seeing the patient in followup of the change in mental status, which has improved s pontaneously with a negative workup including EEG. The patient indicates he feels better today than yesterday. When asked what he thinks happened, he feels maybe he was just depressed. OBJECTIVE: On today's exam, his affect is flat, as is his brothers. He is oriented x3. No right/le ft confusion. Normal reading. No alexia. No facial asymmetry. Normal extraocular motility. Dawn l ayqqhv-gj-dqlr and qrgo-pf-woql. His gait is unremarkable. IMPRESSION: Encephalopathy of unclear etiology, would be very unusual for this patient to have been overtly encephalopathic just from depression. I would recommend that he be seen in my office as an o utpatient and we will consider doing an ambulatory EEG to see if we see any evidence of seizure. I alberto ave no objection to the patient being discharged. Job ID: [id number]
--- NOTE | 2021-03-06 20:00 | Hospitalist Progress Note ---
Date of Service March 06, 2021 Assessment & Plan (1) Acute alteration in mental status: Plan: Encephalopathy Unclear etiology ? Psychological due to recent in family No obvious source of infection MRI of brain: No acute intracranial findings . No evidence of acute or subacute infarction No evidence of intracranial mass -no stroke EEG : normal finding UA: Normal Negative Toxicology Screen Appreciate Neurology, Psychiatry Input Plan for ambulatory EEG as outpatient Needs follow up as outpatient Transaminitis: liver US shows no pathology LFTs improved Normal ammonia level Hyperlipidemia On Statin GERD on PPI DVT Px: SCDs CODE STATUS: Full code Admission and Anticipated Discharge Date Admission Date: March 04, 2021 Subjective Patient is seen and examined at bedside Patient is oriented Admits to having memory issues 2 days ago Currently offers no complaints Denies chest pain, shortness of breath, dizziness, nausea, abdominal pain Review of Systems Review of Systems: All systems reviewed & are unremarkable except as noted in Subjective Physical Exam Physical Exam: Physical Exam: Vitals signs as noted above General Appearance:Moderately built and nourished, no apparent distress Head: normocephalic, Atraumatic Eyes: normal inspection, EOMI Neck: supple, Trachea midline Respiratory/Chest: Normal breath sounds, CTA, No accessory muscle use Cardiovascular: S1, S2, No murmur Abdomen/GI:Soft, Non tender, Bowel sounds present Extremities/Musculoskeletal:normal inspection, no edema Neurologic/Psych:AAOX3, grossly no focal neurological deficits Skin: normal color, warm Results & Data Results & Data ([facility]) Vital Signs (Past 12 Hours) Vital Signs Temp Pulse Resp BP Pulse Ox 03/06/21 19:06 37.2 C 93 H 16 168/88 H 99 Laboratory Results Liver Function 03/06/21 Range/Units 06:00 Total Bilirubin 0.8 (0.2-1) mg/dl Direct Bilirubin 0.2 (0-0.2) mg/dl AST 35 (15-37) U/L ALT 89 H (12-78) U/L Alkaline Phosphatase 109 (45-117) U/L Albumin 3.3 L (3.4-5.0) gm/dl
[2021-03-06] MEDS: ATORVASTATIN 10 MG TAB PO SCH (20:31)
[2021-03-07 07:17] LABS: Hematocrit (blood only) 39.1 % (42-52); Hemoglobin 13.4 g/dL (14.0-18.0); Mean Corpuscular Hemoglobin 28.9 pg (25-34); Mean Corpuscular Hgb Conc 34.3 g/dL (32-36); Mean Corpuscular Volume 84.4 fL (80-100); Mean Platelet Volume 9.9 fL (7.4-10.4); Platelet Count 275 K/uL (130-400); RDW Coefficient of Variation 14.2 % (11.5-14.5); RDW Standard Deviation 43.3 fL (36.4-46.3); Red Blood Count 4.63 M/uL (4.7-6.1); White Blood Count 9.58 K/uL (4.8-10.8)
[2021-03-07 07:37] LABS: BUN Creatinine Ratio 21.7 (10-20); Calcium 8.7 mg/dl (8.5-10.1); Creatinine Clr Calc Pharmacy 83.2 ml/min; Est GFR (African American) 94.7 ml/min; Est GFR (Non-African American) 81.7 ml/min; Potassium 4.1 mmol/L (3.5-5.1)
--- NOTE | 2021-03-07 10:09 | Hospitalist Progress Note ---
Date of Service March 07, 2021 Assessment & Plan (1) Acute alteration in mental status: Plan: Encephalopathy Unclear etiology ? Psychological due to recent in family No obvious source of infection MRI of brain: No acute intracranial findings . No evidence of acute or subacute infarction No evidence of intracranial mass -no stroke EEG : normal finding UA: Normal Negative Toxicology Screen Appreciate Neurology, Psychiatry Input Plan for ambulatory EEG as outpatient Needs follow up with Neurology as outpatient Plan to discharge home today Advised to avoid driving until cleared by Neurology Transaminitis: liver US shows no pathology LFTs improved Normal ammonia level Hyperlipidemia On Statin GERD on PPI DVT Px: SCDs CODE STATUS: Full code Admission and Anticipated Discharge Date Admission Date: March 04, 2021 Subjective Patient is seen and examined at bedside Remains oriented Memory better No complaints Denies chest pain, shortness of breath, dizziness, nausea, abdominal pain Review of Systems Review of Systems: All systems reviewed & are unremarkable except as noted in Subjective Physical Exam Physical Exam: Physical Exam: Vitals signs as noted above General Appearance:Moderately built and nourished, no apparent distress Head: normocephalic, Atraumatic Eyes: normal inspection, EOMI Neck: supple, Trachea midline Respiratory/Chest: Normal breath sounds, CTA, No accessory muscle use Cardiovascular: S1, S2, No murmur Abdomen/GI:Soft, Non tender, Bowel sounds present Extremities/Musculoskeletal:normal inspection, no edema Neurologic/Psych:AAOX3, grossly no focal neurological deficits Skin: normal color, warm Results & Data Results & Data ([facility]) Vital Signs (Past 12 Hours) Vital Signs Temp Pulse Resp BP Pulse Ox 03/07/21 08:47 37.0 C 81 16 124/82 95 03/06/21 23:15 36.9 C 83 16 121/72 95 Laboratory Results Short CBC 03/07/21 Range/Units 06:16 WBC 9.58 (4.8-10.8) K/uL Hgb 13.4 L (14.0-18.0) g/dL Hct 39.1 L (42-52) % Plt Count 275 (130-400) K/uL BMP 03/07/21 06:16 Sodium 139 Potassium 4.1 Chloride 106 Carbon Dioxide 30 BUN 21 H Creatinine 0.98 Glucose 98 Calcium 8.7
--- NOTE | 2021-03-07 10:13 | Discharge Summary ---
Date of Service March 07, 2021 Admission HPI Per Admitting Provider CHIEF COMPLAINT: Confusion. HISTORY OF PRESENT ILLNESS: This 65-year-old male with past medical history significant for hyperlipidemia, GERD, BPH, history of onychomycosis, history of condyloma acuminatum who lives with his brother was brought in because of confusion. The patient attended of his aunt on Thursday. Since yesterday the patient seemed to be somewhat confused. Did not make sense for his brother at home, was brought to the ER early in the morning yesterday, at which time labs unremarkable. Ammonia level was okay except for mild transaminitis, other labs were fine. He got CT of the head which was unremarkable and patient seemed to be fine and he was sent home. After going home, patient seemed to be again confused. As per the brother he was confused, keeps on walking the house and not sitting and seems asks on the same thing and EMS was called and brought in here.Brother says he talks about to see aunt who recently . Here in the ER again labs show some worsening transaminitis and bilirubin is 1.3. In the morning his ammonia was 13, right now his ammonia is 34. Brain MRI done which was unremarkable. Currently, resting comfortable and stable. The patient speaks in low voices. Denies any headache, denies any dizziness or vertigo. Denies any earache, runny nose or sore throat. Denies blurred visions. No cough. Appetite is down today. No chest pain, no shor tness of breath, no cough, no nausea, no abdominal pain, normal bowel and bladder movements. No swelling in the legs, no rash. Hemodynamics are stable. Admission Exam Per Admitting Provider PHYSICAL EXAMINATION: GENERAL: The patient is alert and awake, not in acute distress. VITAL SIGNS: Temperature 37, pulse 100, respiratory rate 32, blood pressure 121/77, oxygen 94% on room air. HEENT: Pupils equal, round and reactive to light. Oral mucosa moist. NECK: No JVD or neck masses. CARDIOVASCULAR SYSTEM: S1 and S2 heard. Regular rate and rhythm. No murmur, no gallop. RESPIRATORY SYSTEM: Normal AP diameter. No accessory muscle use. No wheezing, no crackles. ABDOMEN: Soft, bowel sounds are not present, nontender, nondistended. CENTRAL NERVOUS SYSTEM: Alert and oriented to name and place, somewhat confused at times, confusion with dates. Tells me his date of . Knows that he is in the hospital. Speech is clear. No facial droop. Obeys simple commands, answers simple questions. Moves extremities. Power 5/5 in all extremities. Sensation is intact. Position sense intact. No pronator drift. Coordination of movements normal. EXTREMITIES: No edema, no erythema. Principal Diagnosis Encephalopathy Dehydration Discharge Data Allergies Allergy/AdvReac Type Severity Reaction Status Date / Time No Known Allergies Allergy Unverified 03/03/21 11:18 Consultations 03/04/21 03:00 ED Decision to Admit Stat 03/04/21 08:00 Consult Neurology Routine Consult Psychiatry Routine Ordered Studies 03/04/21 01:15 MR brain wo/w con Stat 03/04/21 04:47 US liver Routine Hospital Course (1) Acute alteration in mental status: Encephalopathy Unclear etiology ? Psychological due to recent in family No obvious source of infection MRI of brain: No acute intracranial findings . No evidence of acute or subacute infarction No evidence of intracranial mass -no stroke EEG : normal finding UA: Normal Normal TSH, B12 levels Negative Toxicology Screen Appreciate Neurology, Psychiatry Input Plan for ambulatory EEG as outpatient Needs follow up with Neurology as outpatient Plan to discharge home today Advised to avoid driving until cleared by Neurology Transaminitis: liver US shows no pathology LFTs improved Normal ammonia level Hyperlipidemia On Statin GERD on PPI DVT Px: SCDs CODE STATUS: Full code Total Time Total Time Spent Total Time Spent (In Minutes): 39 minutes Discharge Plan Discharge Items Patient Disposition: Home - Self-Care Reason For Visit: CONFUSION Discharge Diagnosis: Encephalopathy Activity: Per Instructions section Exercise/Sports: Gradually increase as tolerated Non-emergency contact: Primary Care Provider and Neurologist Call non-emergency contact if: you have any medication questions, your symptoms worsen, your pain is concerning for you and you have a fever Follow-up/Referrals: Aundrea Oglesby PA-C [Physician General Farmer] - (Date & Time 07/11/2021 8:00 AM Provider Aundrea Oglesby PA-C Department Neurology [facility] ) Manuel Saini MD [Primary Care Provider] - (Date & Time 03/12/2021 11:20 AM Provider Manuel Saini MD Department [facility] ) Diet: Heart Healthy Addtl Attending Provider Instructions: Follow-up with your primary care physician Dr. Saini on 03/12/2021 11:20 AM as scheduled Follow-up with your neurologist Aundrea Oglesby PA-C on 07/11/2021 8:00 AM Seek immediate medical attention if your symptoms reoccur or worsen Please take all medications as instructed on discharge list below. Please call if you have any questions or problems. You can reach a [facility] hospitalist on duty at [facility] 24 hours a day by calling [phone] Pending Studies at Discharge: No Stand-Alone Forms: My [facility], Smoking Cessation Medications and DC Order Prescriptions: Continued atorvastatin 10 mg Tablet 10 mg PO HS RF: 0 omeprazole 40 mg Capsule,Delayed Release(Dr/Ec) 40 mg PO DAILY@1600 RF: 0 cholecalciferol (vitamin D3) [Vitamin D3] 2,000 unit Capsule 2,000 unit PO DAILY@1600 RF: 0 aspirin 81 mg Tablet,Delayed Release (Dr/Ec) 81 mg PO DAILY@1600 RF: 0 Discharge Orders: Discharge Order (Routine); Ordered 03/07/21 Ordered By: Matthew Blank Admission Data Admit Date/Time: 03/04/21 03:39 Attending Provider: Matthew Blank Admit Provider: Daniel Gupta Primary Care Provider: Manuel Saini Other Providers: Daniel Gupta ; Aundrea Oglesby ; Nato Camacho Kathleen ; Issac Caicedo ; Cinthia Coy ; Dr Elia ; Radha Spring ; Melchor Pollard Other Interventions: Discharge Summary Assessment (RN) Last Done: 03/07/21 10:58
[2021-03-08 12:22] LABS: Hepatitis A Antibody IgM NON-REACTIVE (NON-REACTIVE); Hepatitis B Core Antibody IgM NON-REACTIVE (NON-REACTIVE)
== END 2021-03-07 16:20 | disposition home or self-care (01) ==
LOC: ED 00:40 → INTOOBSV 03:39 → SUATTDRO 03:39 → 2N 03:39 → 3W 03-05 09:25